=== PATIENT | male | born 1995 | race African-American/Black ===

== ENCOUNTER 2016-08-05 18:35 | Emergency (ER) | payer SELFPAY ==
[~2016-08-05] VITALS: Ht 182.9 cm; Wt 81.6 kg
[2016-08-05 18:42] VITALS: BP 137/73
[2016-08-05] MEDS ORDERED: cefTRIAXone SOD 250 MG VIAL (J0696) IM ONE (19:30)
[2016-08-05] MEDS ORDERED: AZITHROMYCIN 250 MG TAB PO ONE (19:30)
== END 2016-08-05 19:48 | disposition left against medical advice (07) ==
LOC: M ED 19:42
DX: Z20.2 Contact with and (suspected) exposure to infections with a predominantly sexual mode of transmission (principal); F17.210 Nicotine dependence, cigarettes, uncomplicated; F12.20 Cannabis dependence, uncomplicated
CPT/HCPCS: 87491; 87591; 96372; 99283; J0696

== ENCOUNTER 2016-08-18 18:44 | Emergency (ER) | payer BC, SELFPAY ==
[~2016-08-18] VITALS: Ht 182.9 cm; Wt 66.6 kg
[2016-08-18] MEDS ORDERED: KEFL500C7 PO (20:53)
[2016-08-18] MEDS ORDERED: NAPR500T PO (20:53)
[2016-08-18] MEDS: CEPHALEXIN 500 MG CAP PO ONE (21:00)
[2016-08-18 21:01] VITALS: BP 143/88
--- NOTE | 2016-08-18 21:47 | REP ---
RIGHT HAND, FOUR VIEWS: There is no evidence of an acute fracture, dislocation or intrinsic bone disease. IMPRESSION: No fracture or dislocation. Signed by Derick Lema MD 08/19/2016 04:59 P
== END 2016-08-18 21:06 | disposition home or self-care (01) ==
LOC: M ED 19:53
DX: L03.011 Cellulitis of right finger (principal); F17.210 Nicotine dependence, cigarettes, uncomplicated